=== PATIENT | female | born 1990 | race Caucasian/White ===

== ENCOUNTER 2016-07-12 09:18 | Emergency (ER) | payer BC, OTHER ==
[~2016-07-12] VITALS: Ht 167.6 cm; Wt 81.6 kg
[2016-07-12 09:18] VITALS: BP 125/75; PULSE 87; RESP 18; TEMP 98.4; O2SAT 100
--- NOTE | 2016-07-12 09:18 | NUR ---
BROUGHT BACK TO BED #8 AND TRIAGED. REPORT GIVEN TO POOJA
--- NOTE | 2016-07-12 09:34 | NUR ---
Pt states that she has had a pain and stiffness in her next for the past 2 months, with tingling down her right arm and hand. Pt states that the tingling and numbness got worse in the past week, this morning the pt states that her arm felt like weight. Pt is able to move her arm and hand but has pain. Pt is suppose to get an MRI August 19 but the pt had to leave work today because the pain was 8/10. No other injuries/complaints per pt or noted.
--- NOTE | 2016-07-12 09:40 | NUR ---
ER at bedside examining patient.
--- NOTE | 2016-07-12 10:08 | NUR ---
Patient given written and verbal discharge instructions and verbalizes understanding. ER MD discussed with patient the results and treatment provided. Patient in stable condition. ID arm band removed. Rx of soma and tramadol given. Patient educated on pain management and to follow up with PMD. Pain Scale 4. Dr Morales is aware and pain medication was given and pt stated she would take the pain medication at home. Opportunity for questions provided and answered.
[2016-07-12 10:09] VITALS: BP 120/78; PULSE 87; RESP 17; TEMP 98.7; O2SAT 98
== END 2016-07-12 10:08 | disposition home or self-care (01) ==
LOC: SED 09:18
DX: M54.12 Radiculopathy, cervical region (principal)
CPT/HCPCS: 81025; 99283